=== PATIENT | female | born 1955 | race Caucasian/White ===

== ENCOUNTER 2022-01-15 09:09 | Outpatient (CLI) | payer MEDICARE, BC | END 2022-01-15 09:10 | disposition home or self-care (01) | LOC: CSHMRI 09:09 | PROVIDERS: ATTEND Nurse Practitioner Family | DX: M25.551 Pain in right hip (principal); S73.191A Other sprain of right hip, initial encounter; M25.70 Osteophyte, unspecified joint; M67.88 Other specified disorders of synovium and tendon, other site ==

== ENCOUNTER 2024-04-28 08:23 | Day surgery (SDC) | payer MEDICARE, BC ==
[2024-04-28 08:46] VITALS: BP 150/60; TEMP 98
== END 2024-04-28 10:34 | disposition home or self-care (01) ==
LOC: CSHRAD 08:23
PROVIDERS: ATTEND Nurse Practitioner Family
PROC: B00BYZZ Plain Radiography of Spinal Cord using Other Contrast (ICD-10-PCS; principal; 2024-04-28)
DX: M54.16 Radiculopathy, lumbar region (principal)
CPT/HCPCS: 62284; 72132; 77003

== ENCOUNTER 2024-11-14 07:45 | Outpatient (CLI) | payer MEDICARE, BC | END 2024-11-14 07:46 | disposition home or self-care (01) | LOC: CSHULT 07:45 | PROVIDERS: ATTEND Otolaryngology Plastic Surgery within the Head & Neck | DX: E04.1 Nontoxic single thyroid nodule (principal) | CPT/HCPCS: 76536 ==